=== PATIENT | female | born 1970 | race Caucasian/White ===

== ENCOUNTER 2017-12-01 23:45 | Emergency (ER) | payer OTHER ==
[~2017-12-01] VITALS: Ht 157.5 cm; Wt 70.3 kg
[2017-12-02 01:18] LABS: ABSOLUTE BASOPHIL COUNT 0 /CUMM (0.0-0.2); ABSOLUTE EOSINOPHIL COUNT 0.5 /CUMM (0.0-0.7); ABSOLUTE GRANULOCYTE CT 4.5 /CUMM (1.4-6.5); ABSOLUTE LYMPH COUNT 2.6 /CUMM (1.2-3.4); ABSOLUTE MONOCYTE COUNT 0.7 /CUMM (0.10-0.60); BASOPHIL % 0.6 % (0.0-2.0); GRANULOCYTE % 53.9 % (42.2-75.2); HEMATOCRIT 37.4 % (37-47); MEAN CORPUSCULAR HGB 31.7 PG (27.0-31.0); MEAN CORPUSCULAR HGB CONC 34.5 G/DL (33.0-37.0); MEAN CORPUSCULAR VOLUME 91.7 FL (81.0-99.0); PLATELET COUNT 340 /CUMM (130-400); RBC DISTRIBUTION WIDTH 14.2 % (11.5-14.5); RED BLOOD CELL CT 4.08 /CUMM (4.20-5.40); WHITE BLOOD CELL COUNT 8.3 /CUMM (4.8-10.8)
--- NOTE | 2017-12-02 01:45 | ED GENERAL ADULT ---
History of Present Illness General Chief Complaint: Upper Extremity Problem Stated Complaint: " PAIN IN MY ARMS X'S 2 DAY'S MAKES ME NERVOUS" Source: patient Exam Limitations: no limitations Vital Signs & Intake/Output Vital Signs & Intake/Output Vital Signs Date Time Temp Pulse Resp B/P B/P Pulse O2 O2 Flow FiO2 Mean Ox Delivery Rate 12/02 0305 98.0 87 18 150/80 100 Room Air 12/02 0118 Room Air 12/02 0103 98.2 92 18 163/96 99 Room Air Allergies Coded Allergies: amoxicillin (Severe, RASH 12/02/17) Reconcile Medications Omeprazole 20 MG CAPSULE. 1 CAP PO DAILY acid reflux Triage Note: PT TO TRIAGE C/O L SHOULDER PAIN RADIATING DOWN ARM SINCE YESTERDAY MORNING. DENIES NUMBNESS/TINGLING. PT REPORTS PAIN IS SHARP IN NATURE. DENIES CP/SOB/N/V. PT REPORTS SHE WORKED A [employer] OVER THE WEEKEND AND DID A LOT OF HEAVY LIFTING. Triage Nurses Notes Reviewed? 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 Exacerbated with heavy use of her left hand. Acid reflux that did not respond to Tums. Denies chest pain, shortness of breath, lightheaded or dizziness. Denies abdominal pain changes in bowel or bladder. Negative for dysuria or vaginal discharge. Past History Travel History Traveled to [place] past 21 day No Medical History Any Pertinent Medical History? see below for history Neurological: NONE EENT: NONE Cardiovascular: NONE Respiratory: NONE Gastrointestinal: NONE Hepatic: NONE Renal: NONE Musculoskeletal: NONE Psychiatric: NONE Endocrine: NONE Blood Disorders: NONE Cancer(s): NONE AVIONICS ENGINEER/Reproductive: NONE Surgical History Surgical History: none Psychosocial History What is your primary language Martiniquais Tobacco Use: Never used ETOH Use: denies use Family History Hx Contributory? No Review of Systems Review of Systems Constitutional: Reports: no symptoms, see HPI. EENTM: Reports: no symptoms. Respiratory: Reports: no symptoms. Cardiovascular: Reports: no symptoms. GI: Reports: no symptoms. Genitourinary: Reports: no symptoms. Musculoskeletal: Reports: no symptoms. Skin: Reports: no symptoms. Neurological/Psychological: Reports: no symptoms. Hematologic/Endocrine: Reports: no symptoms. Immunologic/Allergic: Reports: no symptoms. All Other Systems: Reviewed and Negative Physical Exam Physical Exam General Appearance: no apparent distress Comments: Gen.: Well-nourished, well-developed, no acute respiratory distress. Head: Normocephalic, atraumatic. Eyes: Normal inspection bilaterally Ears: Normal inspection bilaterally Nose: Normal inspection Throat/mouth : Moist mucosa Neck: Supple, full range of motion, no goiter Heart: Regular rate and rhythm, no murmurs rubs or gallops Lungs: Clear to auscultation bilaterally with normal air entry Chest: Nontender Back: Normal range of motion Abdomen: Soft, nontender, nondistended, normal bowel sounds Extremities: Normal range of motion grossly, equal radial pulses, no cyanosis clubbing or edema, positive Phalen test left hand. Neurologic: Cranial nerves grossly intact, speech is clear Skin: warm and dry Psychiatric: Calm, cooperative, no apparent delusions or hallucinations Core Measures ACS in differential dx? No CVA/TIA Diagnosis: No Sepsis Present: No Sepsis Focused Exam Completed? No Progress Differential Diagnoses I considered the following diagnoses in my evaluation of the patient: Trauma versus carpal tunnel versus nerve impingement. Acid reflux Plan of Care: Orders Procedure Date/time Status TROPONIN LEVEL 12/02 102 Complete MAGNESIUM 12/02 102 Complete COMPREHENSIVE METABOLIC PANEL 12/02 102 Complete CBC WITHOUT DIFFERENTIAL 12/02 102 Complete Current Medications Sig/Skye Start time Last Medication Dose Stop Time Status Admin Aspirin 0 .STK-MED ONE 12/02 011 CAN (Aspirin) Laboratory Tests 12/02/17 0400: Troponin I Cancelled 12/02/17 0110: Anion Gap 9, Estimated GFR > 60, BUN/Creatinine Ratio 30.0 H, Glucose 118 H, Calcium 9.0, Magnesium 1.9, Total Bilirubin 0.3, AST 26, ALT 40, Alkaline Phosphatase 79, Troponin I < 0.01, Total Protein 6.9, Albumin 4.0, Globulin 2.9, Albumin/Globulin Ratio 1.4, CBC w Diff NO MAN DIFF REQ, RBC 4.08 L, MCV 91.7, MCH 31.7 H, MCHC 34.5, RDW 14.2, MPV 10.0, Gran % 53.9, Lymphocytes % 31.4, Monocytes % 8.1, Eosinophils % 6.0 H, Basophils % 0.6, Absolute Granulocytes 4.5, Absolute Lymphocytes 2.6, Absolute Monocytes 0.7 H, Absolute Eosinophils 0.5, Absolute Basophils 0 12/02/17 0103: Urine Test Cancelled Initial ED EKG: normal axis, normal intervals, normal p-waves, normal QRS complex, normal sinus rhythm, nonspecific ST T wave chg Departure Departure Disposition: HOME OR SELF CARE Condition: Stable Clinical Impression Primary Impression: Carpal tunnel syndrome of left wrist Secondary Impressions: Dyspepsia Referrals: Jose Juan Mcgee DO (PCP/Family) Departure Forms: Customer Survey General Discharge Information Prescriptions: Current Visit Scripts Omeprazole 1 CAP PO DAILY #30 CAP Comments Please note that there might be incidental findings in your evaluation that are unrelated to the current emergency department visit. Please notify your primary care doctor about this emergency department visit in order to obtain and review all of the testing performed so that these incidental findings can be monitored as needed. If you had an x-ray performed, please understand that some fractures may not be seen on the initial set of x-rays. If your symptoms persist you might need a repeat set of x-rays to check for such a fracture. If you had a laceration evaluated, please understand that foreign bodies such as glass or wood may not be visible to the naked eye or on plain x-rays. If the wound becomes red, swollen, increasingly more painful or if there is any drainage from the wound, please have it reevaluated by a physician for the possibility of a retained foreign body. If you're unable to follow up as outlined in the discharge instructions please return to the emergency department. Critical Care Note Critical Care Note Critical Care Time: non-applicable
[2017-12-02] MEDS ORDERED: OMEPRAZOLE20 M2 PO (03:03)
[2017-12-02 03:05] VITALS: BP 150/80
== END 2017-12-02 03:08 ==
LOC: ERH 23:45
PROVIDERS: Emergency Medicine
DX: G56.02 Carpal tunnel syndrome, left upper limb (principal); R10.13 Epigastric pain
CPT/HCPCS: 81025; 93005; 93010